=== PATIENT | female | born 1955 | race Caucasian/White ===

== ENCOUNTER → 2016-05-29 | Day surgery (SDC) | payer BC ==
[~2016-05-29] MED LIST: CALCIUM MAGNESI1 TA1 PO; CELEXA20 MG PO; HYDROCODON-ACE1 EAC7 PO; MULTI VITAMIN1 EACH; OMEGA-3 + VITA1 EAC1 PO; ZOLOFT50 MG PO; [UNRECOGNIZED DRUG - OTHER] PO
--- NOTE | ~2016-05-29 | OR ---
Unit #: [id number] #: [id number] Patient: CLIFFORD TODD [id number] [address] [address] [id number] O MR#: [id number] NAME: CLIFFORD TODD ROOM: Date of Procedure: 05/29/2016 Admission Date: 05/29/2016 Surgeon: Eduard De La Paz M.D. : 1955 Attending Physician: Eduard De La Paz M.D. Referring Physician: Eduard De La Paz M.D. Primary Care Physician: Agapito Camacho M.D. OPERATIVE REPORT PRIMARY CARE PHYSICIAN Agapito Camacho M.D. PREOPERATIVE DIAGNOSIS Colorectal cancer screening in an average-risk patient. PROCEDURES PERFORMED 1. Colonoscopy and polypectomy. 2. Colonoscopy and submucosal injection. POSTOPERATIVE DIAGNOSES 1. The patient had a single sessile polyp in the cecum adjacent to appendiceal orifice. The latter was removed after submucosal saline injection and snare polypectomy. 2. The patient had mild sigmoid and descending colon diverticulosis. 3. Rest of the examination up to cecum and terminal ileum was normal. The quality of the prep was excellent. RECOMMENDATIONS Follow up the results of polyp histology and if an adenoma, consider repeat examination in 3 years. SEDATION USED MAC. DESCRIPTION OF PROCEDURE Following detailed explanation of potential risks and complications of a colonoscopy, namely perforation, bleeding, and complication related to sedation, the patient was brought to GI lab and laid in the left lateral decubitus position. A digital rectal examination was performed, which was normal. Lubricated tip of the Olympus video colonoscope was inserted through the anus and advanced under direct vision. The scope was advanced past rectosigmoid into descending colon. Multiple small diverticula were seen in this area. The scope tip was then navigated all the way up to cecum with visualization of the ileocecal valve and the appendiceal orifice. Preparation was excellent with good visualization and photodocumentation was obtained. Last several inches of the terminal ileum were also visualized after intubation of the ileocecal valve and appeared normal. Successive segments of the colonic mucosa were examined upon withdrawal. The patient was noted to have single sessile polyp in the cecum adjacent to appendiceal orifice. This was about a centimeter in size. It was located right next to appendiceal orifice. A decision was Unit #: [id number] #: [id number] Patient: CLIFFORD TODD made to remove the polyp after submucosal saline injection. The polyp bed was then elevated using submucosal saline injection and polyp was removed using snare polypectomy. Excellent hemostasis was achieved and photodocumentation was obtained. The retrieved polyp was sent for histology. No additional polyps were noted. Other than the scant diverticula seen on the left side, no other abnormalities were found. The patient did not have any internal hemorrhoids at the anal verge. The scope was then withdrawn and the patient returned to the recovery area. He tolerated the procedure without any postprocedure complications. Dictated by... Lisy Pickens/martine TD: 05/30/2016 01:40 JOB #: [id number] CC: Agapito Camacho M.D. OPERATIVE REPORT Page 1 of 1 X Eduard De La Paz MD X PROCEDURE OPERATIVE NOTE
== END | disposition home or self-care (01) ==
LOC: COPS 11:12
DX: Z12.11 Encounter for screening for malignant neoplasm of colon (principal); K63.5 Polyp of colon; K57.30 Diverticulosis of large intestine without perforation or abscess without bleeding; J45.909 Unspecified asthma, uncomplicated; K21.9 Gastro-esophageal reflux disease without esophagitis; Z79.899 Other long term (current) drug therapy; Z98.51 Tubal ligation status; Z98.890 Other specified postprocedural states
CPT/HCPCS: 88305; J2250

== ENCOUNTER → 2016-06-12 | Outpatient (CLI) | payer BC ==
--- NOTE | ~2016-06-12 | BD1 ---
[facility] A Service of [facility] RADIOLOGY TEXT RESULTS PATIENT: CLIFFORD TODD LOCATION: [facility] : 57 UNIT #: [id number] AGE: [address]: Agapito Camacho MD SEX: F ORDER DR: [id number] [facility] [address] [facility]. [place], [place] [address] [id number] O MR#: [id number] Acc #: [id number] NAME: CLIFFORD TODD. : 1955 SEX: F STUDY DATE/TIME: 06/12/2016 9:37 UNIT: [facility] ROOM: STUDY DESCRIPTION: BD Dexa Bone Dens 1+ Site Attending Physician: Agapito Camacho M.D. Ordering Physician: Agapito Camacho M.D. Primary Care Physician: Agapito Camacho M.D. MEDICAL IMAGING REPORT This report is preliminary unless electronic signature is present EXAM DXA scan HISTORY Postmenopausal screening for osteoporosis. Patient currently on vitamin D therapy. FINDINGS Bone density was assessed utilizing a Hologic bone densitometer. Total bone density in the lumbar spine was calculated at 0.804 g/cm2 with a T-score of -2.2. Total bone density in the proximal left femur was calculated at 0.811 g/cm2 with a T score of -1.1. When compared to the patient's study from 05/25/2014, there has been a 8.5% decrease in bone density within the lumbar spine. This is statistically significant. There is approximately 5% decrease in total bone density in the proximal left femur. IMPRESSION Patient's total bone density within the lumbar spine and proximal left femur is between 1-2.5 standard deviations below the mean and meets the World Health Organization criteria for osteopenia. When compared to the April 2014 study, there has been a 8.5% decrease in lumbar bone density which is statistically significant. Dictated by... Edna Cortes M.D. THIS IS AN ELECTRONICALLY VERIFIED REPORT Edna Cortes M.D. at 06/12/2016 4:56 PM MARCELLO/vini TD: 06/12/2016 12:00 [facility] A Service of [facility] RADIOLOGY TEXT RESULTS PATIENT: CLIFFORD TODD LOCATION: [facility] #: [id number] : [birth year] UNIT #: [id number] AGE: [address]: Agpaito Camacho MD SEX: F ORDER DR: JOB #: [id number] MEDICAL IMAGING REPORT Page 1 of 1 COPY
== END | disposition home or self-care (01) ==
LOC: CWCC 09:18
DX: M85.80 Other specified disorders of bone density and structure, unspecified site (principal); M85.89 Other specified disorders of bone density and structure, multiple sites
CPT/HCPCS: 77080